=== PATIENT | male | born 1980 | race Caucasian/White ===

== ENCOUNTER → 2016-11-19 | Outpatient (REF) ==
[~2016-11-19] MED LIST: CEPHALEXIN500 M1 PO; DOXYCYCLINE 10100 MG PO; FLEXERIL5 MG PO; LORTAB 7.5/5001 TAB PO; NO HOME MEDICATIONS; NORCO PO; TAMIFLU 75MG75 MG PO
== END ==
LOC: WSOH 09:18
DX: Z00.00 Encounter for general adult medical examination without abnormal findings (principal)

== ENCOUNTER 2021-12-11 06:24 | Emergency (ER) | payer OTHER ==
[~2021-12-11] VITALS: Ht 175.3 cm; Wt 86.4 kg
[2021-12-11 08:02] LABS: BASO # 0.1 K/mm3 (0.0-0.2); BASO % 1.2 % (0.0-2.0); EOS # 0.3 K/mm3 (0.0-0.7); EOS % 5.1 % (0.0-4.0); GRAN # 3.3 K/mm3 (1.4-6.5); GRAN % 55.5 % (42.2-75.2); HEMATOCRIT 49.1 % (42.0-52.0); LYMPH # 1.7 K/mm3 (1.2-3.4); LYMPH % 29.7 % (20.0-51.0); MEAN CELL VOLUME 92 fl (80.0-100.0); MEAN CORPUSCULAR HEMOGLOBIN 32 pg (27-31); MEAN CORPUSCULAR HGB CONC 35 g/dl (33.0-37.0); MEAN PLATELET VOLUME 8.8 fl (7.4-10.4); MONO # 0.5 K/mm3 (0.1-0.6); PLATELET COUNT 289 K/mm3 (130-400); RED BLOOD COUNT 5.35 M/mm3 (4.20-5.60)
[2021-12-11 08:19] LABS: ALBUMIN 4.2 gm/dL (3.5-5.0); BILIRUBIN,TOTAL 0.6 mg/dL (0.2-1.2); C-REACTIVE PROTEIN 0.09 mg/dL (0.00-0.50); CALCIUM 9.3 mg/dL (8.4-10.2); CREATININE, serum 1.17 mg/dL (0.72-1.25); POTASSIUM 4.1 mmol/L (3.5-4.5); TOTAL PROTEIN 7.4 gm/dL (6.2-8.1)
[2021-12-11] MEDS ORDERED: BONINE25 MG PO (11:31)
[2021-12-11 11:50] VITALS: BP 128/90; PULSE 76
--- NOTE | 2021-12-11 11:57 | NUR ---
SPOKE WITH DR. HILL ABOUT HIS ER PT NEEDING AN URGENT MRI BRAIN, PER DR BECERRIL' CT FINDINGS. 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 DR HILL DID NOT WANT TO DISCHARGE THE PT UNTIL MRI WAS COMPLETED. ANTIONETTE BEATTY WAS INVOLVED, AND MADE ARRANGEMENTS WITH EMS FOR PT TRANSPORT TO AND FROM EXAM. EMS ARRIVED AT 1032.
== END 2021-12-11 11:51 | disposition home or self-care (01) ==
LOC: COL.ER 06:24
PROVIDERS: Family Medicine
DX: H83.01 Labyrinthitis, right ear (principal); G50.9 Disorder of trigeminal nerve, unspecified; Z28.310 Unvaccinated for COVID-19
CPT/HCPCS: J7120